=== PATIENT | female | born 1990 ===

== ENCOUNTER 2025-03-23 06:22 | Day surgery (SDC) | payer OTHER, SELFPAY ==
[2025-03-23] VITALS (7 sets, daily range): BP systolic 105–123; BP diastolic 62–74; BMI 26.2
[2025-03-23] MEDS: TYLENOL 1000 MG PO (12:26)
[2025-03-23] MEDS: NORMOSOL-R/PLASMALYTE-A 1000 IV (12:27)
--- NOTE | 2025-03-23 14:22 | W.SUR.PREOP ---
Pre-Operative Surgical Note
-
I have examined this patient prior to the performance of the scheduled procedure.
The patient's condition is unchanged from the time of the current History and
Physical and the patient is able to undergo the scheduled procedure.
--- NOTE | 2025-03-23 16:13 | W.IMMPOSTOP ---
Surgical Immed Post Op Note
-
Primary Surgeon: Quincy Ferraro MD
Assisting Surgeon: None
Pre-op Diagnosis: Biliary colic
Post-op Diagnosis: Same
Procedure Performed: Laparoscopic cholecystectomy with cholangiogram
Anesthesia Type: General
Specimen / Cultures: Gallbladder and contents
Estimated Blood Loss: 7 cc
Complications: None
Operative Findings: Fairly normal appearing but distended gallbladder. Critical view of safety obtained prior to a cholangiogram which demonstrated no distal filling defects and normal biliary anatomy. Additional posterior cystic artery identified
off of a shallow vessel/Moynahan's Hump that was ligated while maintaining the main vessel into the liver intact. Duct and artery ligated with two 5 mm titanium clips.
--- NOTE | 2025-03-23 16:14 | OR.RPT ---
Operative Report
Operative Report
Patient Name: Marla Macias
: 1990
Date of Operation: 03/23/2025
Preoperative Diagnosis: Symptomatic Cholelithiasis
Postoperative Diagnosis: Same
Procedure(s):
Laparoscopic Cholecystectomy with Cholangiogram
Surgeon(s):
Dr. Ferraro
Curing Bin Operator(s):
PRINCE Higgins
Anesthesia: General
Estimated Blood Loss: 7 cc
Urine Output: None
Drains/Lines/Implants: None
Specimens:
1. Gallbladder and contents
HPI/Surgical Indications:
This is a 34 year old female who presents with abdominal pain. Exam, labs and imaging are consistent with symptomatic cholelithiasis. Risks/Benefits/Alternatives were discussed at length, and the patient agreed to proceed with surgery.
Operative Findings: Fairly normal appearing but distended gallbladder. Critical view of safety obtained prior to a cholangiogram which demonstrated no distal filling defects and normal biliary anatomy. Additional posterior cystic artery identified
off of a shallow vessel/Moynahan's Hump that was ligated while maintaining the main vessel into the liver intact. Duct and artery ligated with two 5 mm titanium clips.
Procedure Description:
The patient was brought to the Operating Room and placed in the supine position. IV antibiotics were infused and sequential compression devices were confirmed to be on. Following uneventful induction of general endotracheal anesthesia, an
orogastric tube was placed. The abdomen was prepped and draped in the usual sterile fashion. The abdomen was entered using an infraumbilical open Catrachita technique with a 12 mm trochar. Pneumoperitoneum to 15 mmHg pressure was obtained without
difficulty and we confirmed that no injury had occurred during our entry. The patient was positioned in reverse trendelenberg and rotated with the right side up slightly. Three (3) 5mm trocars were then placed along the right subcostal margin. The
gallbladder was distended but otherwise normal-appearing. A locking grasping forceps was placed on the fundus of the gallbladder where it was then retracted cephalad and to the right. Using appropriate grasping instruments, the peritoneum overlying
the triangle of Calot was incised. The cystic duct/gallbladder junction was identified, dissected circumferentially. The cystic artery was identified medially and was dissected circumferentially. A critical view was obtained. A clip was then
placed on the cystic duct/gallbladder junction and an intraoperative cholangiogram performed using fluoroscopy, which showed good flow of dye into the duodenum. There were no intra- or extrahepatic bile duct filling defects. The biliary anatomy
appeared normal. Following completion of the cholangiogram, the catheter was removed. Two clips were then placed proximally on the cystic duct and the duct divided. Two clips were placed proximally and one distally on the cystic artery, and the
artery was divided. Remaining soft tissue attachments of the gallbladder to the liver bed were then divided using electrocautery. There was some spillage of bile from our ductotomy, but no spillage of stones. There was an additional posterior
cystic artery coming off of a shallow vessel/Moynahan's hump that was ligated with clips while preserving the main vessel. The gallbladder bed was inspected and excellent hemostasis was obtained. The gallbladder was extracted through the 12 mm
trocar site using an endocatch bag. The abdomen was again irrigated and excellent hemostasis was assured. All remaining trocars were then removed and the pneumoperitoneum was evacuated. The 12 mm trocar site was closed using a running 0 PDS. All
trocar sites were closed at the skin level using 4-0 Monocryl followed by Dermabond. Overall, the patient tolerated the procedure well and was taken to the Recovery Room postoperatively in stable condition.
Palomo was the attending physician and performed the procedure with assistance of the PA above. The assistance of PRINCE Higgins was required due to the complexity of the procedure. During the procedure Skylar assisted with port placement, instrument
exchanges, holding camera and closure of the wound. Palomo was present for all portions of the case, excluding skin closure.
Quincy Ferraro MD
[2025-03-23] MEDS: MORPHINE SULFATE 4 MG IV (16:27)
[2025-03-23] MEDS: ZOFRAN 4 MG IV (16:31)
[2025-03-23] MEDS: MORPHINE SULFATE 2 MG IV (16:49)
== END 2025-03-23 17:57 | disposition home or self-care (01) ==
LOC: SDS 06:22
PROVIDERS: ATTENDING PHYSICIAN Surgery
DX: K80.10 Calculus of gallbladder with chronic cholecystitis without obstruction (principal)
CPT/HCPCS: 47563; 74300; 76000; 88304; A4300